=== PATIENT | female | born 1940 | race Caucasian/White ===

== ENCOUNTER → 2016-10-03 | Outpatient (CLI) | payer MEDICARE ==
--- NOTE | 2016-10-03 08:38 | CT ---
EXAMINATION TYPE: CT chest wo con DATE OF EXAM: 10/03/2016 7:22 AM COMPARISON: NONE HISTORY: 76-year-old female with shortness of breath, cough TECHNIQUE: Contiguous axial scanning of the chest without IV contrast. Coronal and sagittal reconstru ctions performed. CT DLP: 555 mGycm Automated exposure control for dose reduction was used. FINDINGS: Diffuse thyroid gland enlargement, left greater than right lobe with 3 cm of substernal extension, sa gittal image 34. The heart is normal size without pericardial effusion. Coronary vessel calcifications are present in remarkable for coronary artery disease. The ascending aorta is mildly aneurysmal at 4.0 cm. There is conventional arterial vessel branching a natomy with mild atherosclerotic arch calcifications. Mild ectasia of the lower descending thoracic a neo at 2.7 cm. No thoracic lymphadenopathy identified. Minimal patchy scarring or infiltrate within the anterior right midlung, axial image 28. A 5 mm nodu lar density anterior left midlung axial image 28. There are 2 adjacent rounded cavitary appearing les ions in the peripheral right base. These measure up to 3.3 cm craniocaudal as measured on coronal ser ies and 3.0 cm AP by 2.1 cm wide. These are in a subpleural location and there is minimal surrounding groundglass at the peripheral right base just adjacent with some curvilinear density that could repr esent scarring or atelectasis. Visualized upper abdomen shows a 2.9 cm cyst in the medial upper pole right kidney and gallstones wit hin a nondistended gallbladder. Bones: Endplate spondylosis throughout the mid to lower thoracic spine. No osseous obstructive proces s. IMPRESSION: 1. TWO ABUTTING, THICK-WALLED CAVITARY APPEARING LESIONS AT THE PERIPHERAL RIGHT BASE MEASURING UP TO 3.3 CM. CORRELATE FOR ATYPICAL FUNGAL OR MYCOBACTERIAL INFECTIONS. CAVITARY NEOPLASM IS ALSO IN THE DIFFERENTIAL. 2. A 5 MM ANTERIOR LEFT MIDLUNG PULMONARY NODULE CAN BE REASSESSED AT FOLLOW-UP. 3. MILD ANEURYSM ASCENDING AORTA AT 4.0 CM. 4. DIFFUSE THYROID GLANDULAR ENLARGEMENT WITH SUBSTERNAL EXTENSION. CONSIDER PHYSICAL EXAM AND THYROI D ULTRASOUND. 5. CHOLELITHIASIS.
== END | disposition home or self-care (01) ==
LOC: RADCTMAIN 07:07
PROVIDERS: ATTEND Internal Medicine Pulmonary Disease
DX: R91.1 Solitary pulmonary nodule (principal); I71.2 Thoracic aortic aneurysm, without rupture
CPT/HCPCS: 71250

== ENCOUNTER → 2016-10-28 | Outpatient (CLI) | payer MEDICARE ==
--- NOTE | 2016-10-28 12:53 | CT ---
EXAMINATION TYPE: CT chest wo con DATE OF EXAM: 10/28/2016 11:26 AM COMPARISON: CT chest October 03, 2016. HISTORY: Cough and shortness of breath per order. Patient states shortness of breath is improving. CT DLP: 613 mGycm. Automated Exposure Control for Dose Reduction was Utilized. TECHNIQUE: CT scan of the thorax is performed without IV contrast. FINDINGS: LUNGS: There is persistent oval masslike consolidation right mid to lower lung laterally that abuts t he pleural surface measuring 1.8 x 1.5 cm on axial image 30 diminished in size from prior exam. More inferior surrounding groundglass opacity with curvilinear density is improved with some residual find ings seen on axial image 35 extending to the hemidiaphragm. Some patchy atelectasis or scarring anter iorly right midlung on axial image 30 is stable or slightly improved. No new nodule or mass is identi fied bilaterally. Patchy bibasilar linear scarring and/or atelectasis is redemonstrated. MEDIASTINUM: Lack of IV contrast is noted to limit evaluation for mediastinal and especially hilar ad enopathy. There are no definitive greater than 1 cm hilar or mediastinal lymph nodes. No cardiomega ly or pericardial effusion is seen. Coronary artery calcification is present which is noted marker fo r coronary artery disease. Heterogeneous enlarged thyroid gland likely reflecting diffuse goiter is r edemonstrated. Ascending aorta measures up to 3.9 cm in diameter there is stable. OTHER: There is dependent gallstone in gallbladder on axial image 60 redemonstrated. There is 3 cm si mple appearing cyst medially upper pole level right kidney redemonstrated. Multilevel spurring in the spine is again seen. IMPRESSION: 1. Persistent masslike consolidation laterally right mid to lower lung with resolution of cavitation and diminished in size suggests resolving infectious process but presence of persistent masslike nodu larity is noted, round atelectasis remains in differential but neoplasm cannot be excluded and furthe r investigation with PET CT follow-up is advised.
== END | disposition home or self-care (01) ==
LOC: RADCTMAIN 11:05
PROVIDERS: ATTEND Internal Medicine Pulmonary Disease
DX: R91.8 Other nonspecific abnormal finding of lung field (principal); R06.02 Shortness of breath; R05 Cough
CPT/HCPCS: 71250

== ENCOUNTER → 2019-02-12 | Outpatient (CLI) | payer MEDICARE ==
--- NOTE | 2019-02-12 19:44 | MR ---
EXAMINATION TYPE: MR brain wo/w con DATE OF EXAM: 02/12/2019 COMPARISON: NONE HISTORY: 78-year-old female Confusion TECHNIQUE: Multiplanar, multisequence images of the brain and brainstem were acquired before and aft er administration of 8 mL IV Gadavist. Diffusion weighted imaging is performed. FINDINGS: No evidence for acute infarction, hemorrhage, mass, mass effect, midline shift, herniation, effacemen t of basal cisterns, or extra-axial fluid collection. No hydrocephalus. Moderate bifrontal cortical atrophy. Mild to moderate scattered and patchy T2 bright white matter change particularly in the subcortical a nd periventricular regions of the cerebral hemispheres. The left vertebral artery is dominant. Major intracranial flow voids are intact. Midline structures demonstrate normal morphology. The craniocervical junction is normal. Post contrast images demonstrate no evidence of pathologic enhancement. Dural venous sinuses are pat ent. 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 Mild mucosal thickening ethmoid air cells and right maxillary sinus. Fluid in the left greater than right mastoid air cells. Globes appear intact. IMPRESSION: 1. Moderate bifrontal cerebral atrophy. 2. Nonspecific scattered and patchy T2 bright white matter change with [id number] burden most l ikely relating to changes of chronic small vessel ischemic disease. 3. No enhancing intracranial lesions. 4. Trapped fluid in the left greater than right mastoid air cells. Correlate for any mastoid pain to exclude mastoiditis.
== END | disposition home or self-care (01) ==
LOC: RADMRIMAIN 11:53
PROVIDERS: ATTEND Family Medicine
DX: G31.9 Degenerative disease of nervous system, unspecified (principal); R90.89 Other abnormal findings on diagnostic imaging of central nervous system
CPT/HCPCS: 70553; A9585